=== PATIENT | male | born 1990 | race Caucasian/White ===

== ENCOUNTER 2020-09-05 07:01 | Outpatient (NON) | payer BC, SELFPAY ==
[2020-09-05 22:30] LABS: SARS-CoV-2 RNA PCR Negative
== END 2020-09-05 07:02 ==
PROVIDERS: PCP Student in an Organized Health Care Education/Training Program; Visit Provider Student in an Organized Health Care Education/Training Program
DX: Z20.828 Contact with and (suspected) exposure to other viral communicable diseases (principal); R05 Cough; R06.02 Shortness of breath
CPT/HCPCS: 87635; C9803; U0003

== ENCOUNTER 2021-05-14 15:14 | Emergency (ER) | payer BC, SELFPAY ==
--- NOTE | ~2021-05-14 | XR_ITS ---
EXAMINATION: XR chest 2V DATE: 05/14/2021 16:01 INDICATION: Chest pain. TECHNIQUE: Frontal and lateral views of the chest were obtained. COMPARISON: None. FINDINGS: There is mild atelectasis in the mid and lower lung zones. No pleural effusion or pneumotho rax. The heart size is normal. IMPRESSION: 1. Mild atelectasis in the mid and lower lung zones. Reviewed, dictated and finalized at location A.
[2021-05-14 15:17] VITALS: BP 153/102; PULSE 100; RESP 16; TEMP 37.1; O2SAT 98
--- NOTE | 2021-05-14 15:35 | ED.GENADULT ---
HPI - General Adult General Chief complaint: Extremity Problem,Nontraumatic Stated complaint: SOB Time Seen by Provider: 05/14/21 15:34 History of Present Illness HPI narrative: Patient is a 30-year-old male otherwise healthy who comes into the ED today complaining of chest pain. Patient reports that yesterday evening he was picking up his child with outstretched arms and he felt a pop in his chest, just to the right of his sternum. Pain has gotten progressively worse since then. Says that it hurts to breathe. Hurts with shoulder abduction. Denies any other symptoms or concerns. Denies previous history of similar symptoms. Related Data Allergies Allergy/AdvReac Type Severity Reaction Status Date / Time No Known Allergies Allergy Verified 05/14/21 16:30 Review of Systems Constitutional: Constitutional: Reports as per HPI, Denies fever(s), Denies night sweats and Denies weakness Cardiovascular: Cardiovascular: Reports chest pain, Denies edema, Denies leg edema, Denies dyspnea and Denies orthopnea Respiratory: Respiratory: Denies cough and Denies dyspnea Gastrointestinal: Gastrointestinal: Denies abdominal pain, Denies constipation, Denies diarrhea, Denies nausea and Denies vomiting Musculoskeletal: Musculoskeletal: Denies abnormal gait, Denies back pain, Denies numbness and Denies tingling Neurologic: Denies Abnormal speech present, Denies abnormal gait, Denies numbness, Denies tingling and Denies weakness Psychiatric: Psychiatric: Denies homicidal ideation and Denies suicidal ideation Exam Const: General: cooperative, healthy appearing, comfortable, no acute distress, well developed, alert, awake and Physically active Orientation/consciousness: patient oriented x3 Other: Pleasant. HENMT: Head: normal to inspection, normocephalic and atraumatic Ears: external ears normal General nose exam: Normal external nose present Eyes: Pupils: Equal, round and reactive pupils present EOM: EOMs intact bilaterally Neck: Neck: normal visual inspection Chest: Chest palpation & inspection: normal inspection of the chest and tenderness (Tender to palpate over right side of the sternum and over right pectoral ) pectoral muscle and sternum Resp: Effort & Inspection: normal respiratory effort and able to speak in complete sentences Auscultation: clear to auscultation bilaterally Cardio: Rate: regular rate Rhythm: regular rhythm GI: Inspection: normal to inspection GI Palp: No abdominal tenderness : General: Yes no CVA tenderness Back/Spine/Pelvis: Back: no CVA tenderness Skin: General skin exam: normal color and no rashes or lesions noted Lesions: no lesions Other: No rash. Neuro: General: patient oriented x3, no focal motor deficits and CN's II-XI intact bilaterally Cranial nerves: Yes Equal, round and reactive pupils present Speech: No Abnormal speech present Extrem: General: normal to inspection and full ROM Other: Full range of motion right upper extremity in all planes. Psych: Appearance: grossly normal and well kempt Mental Status: mental status grossly normal Speech and movement: Normal speech and movement present Affect: normal affect Thought process: Normal thought process present Course Vital Signs Vital signs: Vital Signs Temperature 37.1 C 05/14/21 15:17 Pulse Rate 100 05/14/21 15:17 Respiratory Rate 16 05/14/21 15:17 Blood Pressure 153/102 H 05/14/21 15:17 Pulse Oximetry 98 05/14/21 15:17 Temperature 37.1 C 05/14/21 15:17 Pulse Rate 97 05/14/21 18:16 Respiratory Rate 15 05/14/21 18:16 Blood Pressure 150/95 H 05/14/21 18:16 Pulse Oximetry 99 05/14/21 18:16 Medical Decision Making MDM Narrative Medical decision making narrative: Patient is a 22-year-old male otherwise healthy who comes to the ED today complaining of chest pain that is very consistent with costochondritis. Chest x-ray already showing some atelectasis. He was given incentive spirometer, he is ab
[2021-05-14] MEDS: ACETAMINOPHEN 325 MG TABLET 650 MG PO (16:30)
[2021-05-14] MEDS: methylPREDNISolone SOD SUCC 125 MG VIAL IM (16:31)
[2021-05-14] MEDS: KETOROLAC 30 MG/ML VIAL (*BKC) IM (16:31)
[2021-05-14 18:16] VITALS: BP 150/95; PULSE 97; RESP 15; O2SAT 99
== END 2021-05-14 18:17 | disposition home or self-care (01) ==
PROVIDERS: Emergency Provider Emergency Medicine; PCP Student in an Organized Health Care Education/Training Program
DX: M94.0 Chondrocostal junction syndrome [Tietze] (principal)
CPT/HCPCS: 71046; 96372; 99284; A9270; J1885; J2930